=== PATIENT | female | born 1970 | race Hispanic/Latino ===

== ENCOUNTER 2022-05-23 08:22 | Emergency (ER) | payer MEDICARE ==
--- NOTE | 2022-05-23 09:24 | XRay Report ---
CHEST 2 VIEWS INDICATION / CLINICAL INFORMATION: sob. COMPARISON: None available. FINDINGS: SUPPORT DEVICES: None. HEART / MEDIASTINUM: No significant abnormality. LUNGS / PLEURA: No significant pulmonary or pleural abnormality. No pneumothorax. ADDITIONAL FINDINGS: No significant additional findings. IMPRESSION: 1. No acute findings. Signer Name: Irineo Abraham MD Signed: 05/23/2022 9:20 AM Workstation Name: [facility]
--- NOTE | 2022-05-23 09:57 | Emergency Department Report ---
ED General Adult HPI - General Chief complaint: Dyspnea/Respdistress Stated complaint: SWOLLEN ANKLE/FIBROIDS PUI?: No Time Seen by Provider: 05/23/22 08:51 Source: patient Mode of arrival: Ambulatory Limitations: No Limitations - History of Present Illness Initial comments: Patient is a 52-year-old female that comes to the ER from [place]. She was complaining of bilateral leg swelling so they sent her here. She has mild pedal edema bilaterally. She says that she has had this in the past. Given her complaints to the [facility] staff they sent her here for medical clearance. Patient denies chest pain or shortness of breath. Patient is hard of hearing. Patient is ambulatory, not ill nontoxic. She is cooperative. No HI or SI. Patient has no tachycardia or hypotension. No fever or chills. She has no complaints other than mild swelling of her legs. No chest pain. No shortness of breath. No abdominal pain. No back pain. Improves with: none Worsens with: none Associated Symptoms: denies other symptoms Treatments Prior to Arrival: none - Related Data Allergies Allergy/AdvReac Type Severity Reaction Status Date / Time tramadol Allergy Unknown Verified 05/23/22 08:46 ED Review of Systems ROS: Stated complaint: SWOLLEN ANKLE/FIBROIDS Other details as noted in HPI Comment: All other systems reviewed and negative ED Past Medical Hx - Past Medical History Previous Medical History?: Yes - Surgical History Past Surgical History?: No - Family History Family history: no significant - Social History Smoking Status: Never Smoker Substance Use Type: None ED Physical Exam - General Limitations: No Limitations General appearance: alert, in no apparent distress - Head Head exam: Present: atraumatic, normocephalic - Eye Eye exam: Present: normal appearance - ENT ENT exam: Present: mucous membranes moist - Neck Neck exam: Present: normal inspection - Respiratory Respiratory exam: Present: normal lung sounds bilaterally. Absent: respiratory distress - Cardiovascular Cardiovascular Exam: Present: regular rate, normal rhythm. Absent: systolic murmur, diastolic murmur, rubs, gallop - GI/Abdominal GI/Abdominal exam: Present: soft, normal bowel sounds - Extremities Exam Extremities exam: Present: normal inspection - Back Exam Back exam: Present: normal inspection - Neurological Exam Neurological exam: Present: alert, oriented X3 - Psychiatric Psychiatric exam: Present: normal affect, normal mood - Skin Skin exam: Present: warm, dry, intact, normal color, other (Mild bilateral dependent edema). Absent: rash ED Course Vital Signs 05/23/22 08:41 Temperature 98.6 F Pulse Rate 81 Respiratory 20 Rate Blood Pressure 138/70 [Left] O2 Sat by Pulse 95 Oximetry ED Medical Decision Making - Lab Data Result diagrams: 05/23/22 09:16 05/23/22 09:16 - Radiology Data Radiology results: report reviewed, image reviewed No acute process - Medical Decision Making Vital Signs 05/23/22 08:41 Temperature 98.6 F Pulse Rate 81 Respiratory 20 Rate Blood Pressure 138/70 [Left] O2 Sat by Pulse 95 Oximetry Labs 05/23/22 05/23/22 09:16 09:16 WBC 10.3 RBC 4.21 Hgb 13.4 Hct 39.4 MCV 94 MCH 32 MCHC 34 RDW 13.7 Plt Count 274 Sodium 143 Potassium 3.6 Chloride 106.3 Carbon Dioxide 27 Anion Gap 13 BUN 8 Glucose 101 H Calcium 9.3 Total Bilirubin 0.20 AST 23 ALT 18 Alkaline Phosphatase 127 Troponin T < 0.010 NT-Pro-B Natriuret Pep 131.4 Total Protein 7.1 Albumin 4.2 Albumin/Globulin Ratio 1.4 X-ray noted to be clear. Labs noted. Patient has bilateral dependent edema. Have given her 20 of Lasix p.o. for comfort. Patient medically cleared to go back to [place]. On discharge exam patient ambulatory, not ill nontoxic. She is taking p.o. Patient being discharged to [facility] with plan of care including diet, activity, medications and follow-up. - Differential Diagnosis Rule out LUCI, CHF, pneumonia, DVT Critical care attestation.: If time is entered above; I have spent that time in minutes in the direct care of this critically ill patient, excluding procedure time. ED Disposition Clinical Impression: Dependent edema, Medical clearance for psychiatric admission Disposition: HOME / SELF CARE / HOMELESS Is pt being admited?: No Does the pt Need Aspirin: No Condition: Stable Instructions: Peripheral Edema Additional Instructions: follow up with pcp- referral below follow up with obgyn for fibroids- referral below Referrals: SAYDA JAVED MD [Staff Physician] - 3-5 Days CEASAR COLLINS MD [Staff Physician] - 3-5 Days Time of Disposition: 10:32
[2022-05-23 09:58] LABS: Hematocrit 39.4 % (30.3-42.9); Hemoglobin 13.4 gm/dl (10.1-14.3); Mean Corpuscular HGB Conc 34 % (30-34); Mean Corpuscular Volume 94 fl (79-97); Platelet Count 274 K/mm3 (140-440); Red Blood Count 4.21 M/mm3 (3.65-5.03); Red Cell Distribution Width 13.7 % (13.2-15.2)
[2022-05-23 10:26] LABS: Alanine Aminotransferase 18 units/L (7-56); Albumin 4.2 g/dL (3.9-5); Blood Urea Nitrogen 8 mg/dL (7-17); Calcium 9.3 mg/dL (8.4-10.2); Hemolysis Index 6
[2022-05-23] MEDS ORDERED: FUROSEMIDE 20 MG TAB PO ONE (10:32)
[2022-05-23 10:42] LABS: BUN/Creatinine Ratio 16
[2022-05-23 12:16] VITALS: BP 140/78
== END 2022-05-23 12:15 | disposition home or self-care (01) ==
LOC: ED 08:22
DX: R60.9 Edema, unspecified (principal); Z13.30 Encounter for screening examination for mental health and behavioral disorders, unspecified; Z88.8 Allergy status to other drugs, medicaments and biological substances
CPT/HCPCS: 36415; 71046; 80053; 83880; 84484; 85027; 99283

== ENCOUNTER 2022-07-26 11:33 | Outpatient (CLI) | payer MEDICARE ==
[2022-07-26 12:26] LABS: Basophils # (Auto) 0.1 K/mm3 (0.0-0.1); Basophils % (Auto) 1.4 % (0.0-1.8); Eosinophils # (Auto) 0.6 K/mm3 (0.0-0.4); Eosinophils % (Auto) 6.3 % (0.0-4.3); Hematocrit 36.6 % (30.3-42.9); Hemoglobin 13.1 gm/dl (10.1-14.3); Lymphocytes # (Auto) 3.3 K/mm3 (1.2-5.4); Lymphocytes % (Auto) 32.7 % (13.4-35.0); Mean Corpuscular HGB Conc 36 % (30-34); Mean Corpuscular Volume 94 fl (79-97); Monocytes # (Auto) 0.6 K/mm3 (0.0-0.8); Monocytes % (Auto) 6.1 % (0.0-7.3); Platelet Count 274 K/mm3 (140-440); Red Blood Count 3.92 M/mm3 (3.65-5.03)
[2022-07-26 12:45] LABS: Alanine Aminotransferase 24 units/L (7-56); Albumin 4.2 g/dL (3.9-5); Blood Urea Nitrogen 11 mg/dL (7-17); Calcium 9.1 mg/dL (8.4-10.2); Chol/HDL Ratio 2.46 %; HDL Cholesterol 56 mg/dL (40-59); Hemolysis Index 6; LDL Cholesterol,Direct 64 mg/dL (50-130)
[2022-07-26 12:46] LABS: BUN/Creatinine Ratio 18
[2022-07-29 14:01] LABS: Vitamin D, 25-OH, D2 5 ng/mL
== END 2022-07-26 11:34 | disposition home or self-care (01) ==
LOC: LAB 11:33
PROVIDERS: ATTEND Internal Medicine
DX: Z00.00 Encounter for general adult medical examination without abnormal findings (principal); I10 Essential (primary) hypertension; E78.5 Hyperlipidemia, unspecified; R53.83 Other fatigue; R73.03 Prediabetes; E55.9 Vitamin D deficiency, unspecified
CPT/HCPCS: 36415; 80053; 80061; 82306; 83036; 84443; 85025